=== PATIENT | female | born 2005 | race Caucasian/White ===

== ENCOUNTER 2024-07-23 12:50 | Outpatient (CLI) | payer OTHER, BC | END 2024-07-23 12:51 | disposition home or self-care (01) | LOC: CSHDTY/OP 12:50 | PROVIDERS: ATTEND Nurse Practitioner Family | DX: Z71.3 Dietary counseling and surveillance (principal) | CPT/HCPCS: 97802 ==

== ENCOUNTER 2025-01-06 09:56 | Outpatient (CLI) | payer OTHER, BC | END 2025-01-06 09:57 | disposition home or self-care (01) | LOC: CSHDTY/OP 09:56 | PROVIDERS: ATTEND Nurse Practitioner Family | DX: Z71.3 Dietary counseling and surveillance (principal) | CPT/HCPCS: 97802 ==

== ENCOUNTER 2025-01-14 17:40 | Emergency (ER) | payer OTHER, BC ==
[2025-01-14] MEDS ORDERED: predniSONE 20 MG TAB ONE (19:15)
== END 2025-01-14 19:22 | disposition home or self-care (01) ==
LOC: CSHERS 17:40
DX: U07.1 COVID-19 (principal); J01.90 Acute sinusitis, unspecified
CPT/HCPCS: 87081; 87428; 87430; 99283; J7512

== ENCOUNTER 2025-01-29 08:39 | Outpatient (CLI) | payer OTHER, BC | END 2025-01-29 08:40 | disposition home or self-care (01) | LOC: CSHULT 08:39 | DX: E28.2 Polycystic ovarian syndrome (principal) | CPT/HCPCS: 76856; 93976 ==